=== PATIENT | male | born 1940 | race Caucasian/White ===

== ENCOUNTER 2016-06-06 11:50 | Inpatient (IN) | payer MEDICARE, OTHER ==
[~2016-06-06] VITALS: Ht 175.3 cm; Wt 84.4 kg
[~2016-06-06 11:50] MED LIST: ASPI-807 PO; BIFI4CAP PO; BISA10SU61 RC; CARV3.122 PO; CHOL100040 PO; DILT30TA35 PO; FAMO-130 PO; FLUV20CA PO; INSU100V13 SQ; INSU10VI3 SQ; MAGN400O6 PO; MECL12.582 PO; MIRT15TA3 PO; SITA25TA PO; SPIR25TA PO; TRAM100T PO
[2016-06-06] MEDS ORDERED: IV NS 0.9% 1,000 ML BAG IV ONE (12:00)
[2016-06-06] MEDS ORDERED: MORPHINE SULFATE INJ 10 MG/ML DISP.SYRIN IV ONE (12:00)
[2016-06-06] MEDS ORDERED: CEFEPIME 1 GM in IV D5W 50 ML IV ONE (12:00)
[2016-06-06] MEDS ORDERED: VANCOMYCIN 1 GM in IV D5W 250 ML IV ONE (12:00)
[2016-06-06] MEDS ORDERED: ONDANSETRON HCL/PF 4 MG/2 ML VIAL IV ONE (12:00)
[2016-06-06] MEDS ORDERED: IV NS 0.9% 1,000 ML ONE (12:13)
[2016-06-06] MEDS ORDERED: MORPHINE SULFATE INJ 4 MG/ML DISP.SYRIN ONE (12:13)
[2016-06-06] MEDS ORDERED: IV SET PRIMARY 1 EA INFUS.SET MC ONE (12:13)
[2016-06-06] MEDS ORDERED: ONDANSETRON HCL/PF 4 MG/2 ML VIAL ONE (12:13)
[2016-06-06 12:20] LABS: EOSINOPHILS # (AUTO) 0.4 /CMM (0.0-0.7); LYMPHOCYTES # (AUTO) 1.1 /CMM (0.8-4.8)
[2016-06-06 12:23] LABS: BASOPHILS # (AUTO) 0.1 /CMM (0.0-0.2); BASOPHILS % (AUTO) 1.4 % (0.0-2.0); DIFF TOTAL % 100 %; EOSINOPHILS % (AUTO) 4.2 % (0.0-6.0); HEMATOCRIT 36 % (39-51); HEMOGLOBIN 11.7 g/dL (13.5-17.5); LYMPHOCYTES % (AUTO) 11.9 % (20.0-44.0); MEAN CORPUSCULAR HEMOGLOBIN 30 PG (26.0-33.0); MEAN CORPUSCULAR HGB CONC 33 g/dl (31.0-36.0); MEAN CORPUSCULAR VOLUME 93 fL (80-96); MONOCYTES # (AUTO) 0.5 /CMM (0.1-1.30); MONOCYTES % (AUTO) 5.8 % (2.0-12.0); NEUTROPHILS % (AUTO) 76.7 % (43.0-81.0); PLATELET COUNT (AUTO) 210 /CMM (150-450); RED BLOOD CELL COUNT(AUTO) 3.84 MIL/uL (4.5-6.0); WHITE BLOOD COUNT (AUTO) 9.1 K/uL (4.3-11.0)
[2016-06-06 12:29] LABS: ANION GAP 17 (5-14); CALCIUM, SERUM 8.9 mg/dL (8.5-10.1); CARBON DIOXIDE 25 mmol/L (21-32); CHLORIDE 97 mmol/L (98-107); CREATININE 1.9 mg/dL (0.6-1.3); GLUCOSE 105 mg/dL (74-106); POTASSIUM 4.2 mmol/L (3.5-5.1); SODIUM SERUM 135 mmol/L (136-145); UREA NITROGEN, BLOOD 29 mg/dL (7-18)
[2016-06-06 12:35] LABS: ALANINE AMINOTRANSFERASE 13 U/L (12-78); ALBUMIN 3.4 g/dL (3.4-5.0); ASPARTATE AMINOTRANSFERASE 13 U/L (15-37); BILIRUBIN,DIRECT 0.2 mg/dL (0.0-0.2); BILIRUBIN,TOTAL 0.7 mg/dL (0.2-1.0); INDIRECT BILIRUBIN 0.5 mg/dL (0.0-1.1); TOTAL PROTEIN, SERUM 7.9 g/dL (6.4-8.2)
[2016-06-06 12:37] LABS: TROPONIN I < 0.017 ng/mL (0.00-0.056)
[2016-06-06 12:38] LABS: INR 1.02 (0.87-1.13); PROTHROMBIN TIME 10.7 SECS (9.5-12.7)
[2016-06-06] MEDS ORDERED: FAMO40TA7 PO (12:39)
[2016-06-06] MEDS ORDERED: GABA-532 PO (12:39)
[2016-06-06] MEDS ORDERED: LINA5TAB PO (12:39)
[2016-06-06] MEDS ORDERED: VITA1TAB56 PO (12:39)
[2016-06-06] MEDS ORDERED: NATE60TA4 PO (12:39)
[2016-06-06] MEDS ORDERED: MIDO5TAB PO (12:39)
[2016-06-06] MEDS ORDERED: ATOR10TA PO (12:39)
[2016-06-06] MEDS ORDERED: PIOG30TA2 PO (12:39)
[2016-06-06] MEDS ORDERED: NATE120T6 PO (12:39)
[2016-06-06] MEDS ORDERED: IV SET PRIMARY PUMP SET 1 EA INFUS.SET MC ONE ×2 (12:39→18:36)
[2016-06-06] MEDS ORDERED: CHOL100044 PO (12:39)
[2016-06-06] MEDS ORDERED: LACT10SO7 PO (12:39)
[2016-06-06 14:30] VITALS: BP 121/78
[2016-06-06] MEDS ORDERED: ACETAMINOPHEN 325 MG TABLET PO PRN (15:30)
[2016-06-06] MEDS ORDERED: DEXTROSE 50%-WATER 50 ML DISP.SYRIN IV PRN (15:30)
[2016-06-06] MEDS ORDERED: ONDANSETRON HCL/PF 4 MG/2 ML VIAL IVP PRN (15:30)
[2016-06-06] MEDS ORDERED: HYDROCODONE/APAP 5/325MG 1 EACH TABLET PO PRN (15:30)
[2016-06-06] MEDS ORDERED: Z GUARD REMEDY 2 OZ OINT TP PRN (15:30)
[2016-06-06] MEDS ORDERED: MAGNESIUM HYDROXIDE 30 ML UDC PO PRN (15:30)
[2016-06-06] MEDS ORDERED: MAG HYDROX/AL HYDROX/SIMETH 30 ML UDC PO PRN (15:30)
[2016-06-06] MEDS ORDERED: ZOLPIDEM TARTRATE 5 MG TABLET PO PRN (15:30)
[2016-06-06] MEDS ORDERED: Medication Not On Formulary EA (Famotidine 40 MG) PO SCH (15:30)
[2016-06-06 16:00] VITALS: BP 116/70
[2016-06-06] MEDS ORDERED: LACTULOSE 10 G/15 ML UDC (PYXIS) PO PRN (16:30)
[2016-06-06] MEDS: PIOGLITAZONE HCL 15 MG TABLET PO SCH (16:34)
[2016-06-06] MEDS: CHOLECALCIFEROL 1,000 UNIT TABLET (VIT D3) PO SCH (16:34)
[2016-06-06] MEDS: PANTOPRAZOLE 40 MG TABLET.DR PO SCH (16:34)
[2016-06-06] MEDS: ASPIRIN 81 MG TAB.CHEW PO SCH (16:34)
[2016-06-06] MEDS: GABAPENTIN 100 MG CAPSULE PO SCH (16:34)
[2016-06-06] MEDS: ATORVASTATIN 10 MG TABLET PO SCH (16:34)
[2016-06-06] MEDS ORDERED: FEE PK DOSING 1 MIN EA MC ONE (16:44)
[2016-06-06] MEDS ORDERED: NATEGLINIDE 60 MG TABLET PO SCH ×2 (17:00)
[2016-06-06] MEDS: BLOOD SUGAR DIAGNOSTIC 1 EACH STRIP VI SCH ×2 (17:30→21:44)
[2016-06-06] MEDS: IV NS 0.9% 1,000 ML IV PRN (18:43)
[2016-06-06] MEDS: FAMOTIDINE (20 MG) 20 MG TABLET PO SCH (18:43)
[2016-06-06 21:00] VITALS: BP 126/69
[2016-06-06] MEDS: *INSULIN REGULAR(HUMULIN R)HUM 100 UNIT/ML VIAL SQ PRN (21:46)
[2016-06-06] MEDS: INSULIN DETEMIR 100 UNIT/ML CARTRIDGE SQ SCH (21:47)
[2016-06-07] MEDS: BLOOD SUGAR DIAGNOSTIC 1 EACH STRIP VI SCH ×4 (06:10→22:27)
[2016-06-07] MEDS: INSULIN REGULAR, HUMAN 100 UNIT/ML 3 ML VIAL SQ PRN ×2 (06:15→17:33)
[2016-06-07] MEDS: IV NS 0.9% 1,000 ML IV PRN (06:19)
[2016-06-07 08:20] LABS: BASOPHILS % (AUTO) 0.1 % (0.0-2.0); DIFF TOTAL % 100 %; EOSINOPHILS # (AUTO) 0.5 /CMM (0.0-0.7); EOSINOPHILS % (AUTO) 5.7 % (0.0-6.0); HEMATOCRIT 31 % (39-51); HEMOGLOBIN 10.4 g/dL (13.5-17.5); LYMPHOCYTES # (AUTO) 0.6 /CMM (0.8-4.8); LYMPHOCYTES % (AUTO) 6.1 % (20.0-44.0); MEAN CORPUSCULAR HEMOGLOBIN 31 PG (26.0-33.0); MEAN CORPUSCULAR HGB CONC 34 g/dl (31.0-36.0); MEAN CORPUSCULAR VOLUME 92 fL (80-96); MONOCYTES # (AUTO) 0.8 /CMM (0.1-1.30); MONOCYTES % (AUTO) 8.4 % (2.0-12.0); NEUTROPHILS # (AUTO) 7.5 /CMM (1.8-8.9); NEUTROPHILS % (AUTO) 79.7 % (43.0-81.0); PLATELET COUNT (AUTO) 174 /CMM (150-450); RED BLOOD CELL COUNT(AUTO) 3.37 MIL/uL (4.5-6.0); WHITE BLOOD COUNT (AUTO) 9.4 K/uL (4.3-11.0)
[2016-06-07] MEDS: PIOGLITAZONE HCL 15 MG TABLET PO SCH (08:28)
[2016-06-07] MEDS: ASPIRIN 81 MG TAB.CHEW PO SCH (08:28)
[2016-06-07] MEDS: FAMOTIDINE (20 MG) 20 MG TABLET PO SCH (08:28)
[2016-06-07] MEDS: VITAMIN B COMP W-C 1 TAB TABLET PO SCH (08:28)
[2016-06-07] MEDS: CHOLECALCIFEROL 1,000 UNIT TABLET (VIT D3) PO SCH (08:28)
[2016-06-07] MEDS: PANTOPRAZOLE 40 MG TABLET.DR PO SCH (08:28)
[2016-06-07] MEDS: ATORVASTATIN 10 MG TABLET PO SCH (08:29)
[2016-06-07] MEDS: GABAPENTIN 100 MG CAPSULE PO SCH ×2 (08:29→17:31)
[2016-06-07 08:54] LABS: ALBUMIN 2.6 g/dL (3.4-5.0); BILIRUBIN,TOTAL 0.4 mg/dL (0.2-1.0); CALCIUM, SERUM 7.9 mg/dL (8.5-10.1); CREATININE 1.7 mg/dL (0.6-1.3); PHOSPHORUS 3.1 mg/dL (2.5-4.9); TOTAL PROTEIN, SERUM 6.3 g/dL (6.4-8.2)
[2016-06-07 09:00] VITALS: BP 136/70
[2016-06-07 09:40] LABS: THYROID STIMULATING HORMONE 1.881 uIU/mL (0.358-3.74)
[2016-06-07] MEDS: MIDODRINE HCL (5MG) 5 MG TABLET PO SCH (12:17)
[2016-06-07] MEDS: DILTIAZEM HCL 30 MG TABLET PO SCH (12:17)
[2016-06-07] MEDS ORDERED: SECONDARY IV SET 1 EA INFUS.SET MC ONE ×2 (12:44→13:48)
[2016-06-07] MEDS ORDERED: Magnesium 1GM/D5W 100ML PREMIX 100 ML IV SCH (13:00)
[2016-06-07] MEDS: VANCOMYCIN 1 GM in IV D5W 250 ML IV SCH (14:01)
[2016-06-07 17:46] VITALS: BP 108/68
[2016-06-07 20:00] VITALS: BP 126/69
[2016-06-07] MEDS: *INSULIN REGULAR(HUMULIN R)HUM 100 UNIT/ML VIAL SQ PRN (22:25)
[2016-06-07] MEDS: INSULIN DETEMIR 100 UNIT/ML CARTRIDGE SQ SCH (22:32)
[2016-06-08] MEDS: BLOOD SUGAR DIAGNOSTIC 1 EACH STRIP VI SCH ×4 (07:06→21:26)
[2016-06-08 08:00] VITALS: BP 144/83
[2016-06-08] MEDS: ATORVASTATIN 10 MG TABLET PO SCH (08:44)
[2016-06-08] MEDS: VITAMIN B COMP W-C 1 TAB TABLET PO SCH (08:44)
[2016-06-08] MEDS: GABAPENTIN 100 MG CAPSULE PO SCH ×2 (08:44→17:46)
[2016-06-08] MEDS: CHOLECALCIFEROL 1,000 UNIT TABLET (VIT D3) PO SCH (08:44)
[2016-06-08] MEDS: PANTOPRAZOLE 40 MG TABLET.DR PO SCH (08:44)
[2016-06-08] MEDS: FAMOTIDINE (20 MG) 20 MG TABLET PO SCH (08:44)
[2016-06-08] MEDS: PIOGLITAZONE HCL 15 MG TABLET PO SCH (08:44)
[2016-06-08] MEDS: ASPIRIN 81 MG TAB.CHEW PO SCH (08:44)
[2016-06-08] MEDS: MIDODRINE HCL (5MG) 5 MG TABLET PO SCH (12:25)
[2016-06-08] MEDS: DILTIAZEM HCL 30 MG TABLET PO SCH (12:25)
[2016-06-08] MEDS: INSULIN REGULAR, HUMAN 100 UNIT/ML 3 ML VIAL SQ PRN ×2 (12:28→17:53)
[2016-06-08] MEDS: VANCOMYCIN 1 GM in IV D5W 250 ML IV SCH (13:31)
[2016-06-08] MEDS: IV NS 0.9% 1,000 ML IV PRN (13:37)
[2016-06-08 20:00] VITALS: BP 121/67
[2016-06-08] MEDS: *INSULIN REGULAR(HUMULIN R)HUM 100 UNIT/ML VIAL SQ PRN (21:28)
[2016-06-08] MEDS: INSULIN DETEMIR 100 UNIT/ML CARTRIDGE SQ SCH (21:30)
[2016-06-09] MEDS: BLOOD SUGAR DIAGNOSTIC 1 EACH STRIP VI SCH ×3 (06:19→16:40)
[2016-06-09 08:00] VITALS: BP 150/77
[2016-06-09 08:43] LABS: CALCIUM, SERUM 7.7 mg/dL (8.5-10.1); CREATININE 1.5 mg/dL (0.6-1.3); POTASSIUM 3.9 mmol/L (3.5-5.1)
[2016-06-09] MEDS: ASPIRIN 81 MG TAB.CHEW PO SCH (09:13)
[2016-06-09] MEDS: GABAPENTIN 100 MG CAPSULE PO SCH ×2 (09:13→16:39)
[2016-06-09] MEDS: CHOLECALCIFEROL 1,000 UNIT TABLET (VIT D3) PO SCH (09:13)
[2016-06-09] MEDS: ATORVASTATIN 10 MG TABLET PO SCH (09:13)
[2016-06-09] MEDS: VITAMIN B COMP W-C 1 TAB TABLET PO SCH (09:13)
[2016-06-09] MEDS: PANTOPRAZOLE 40 MG TABLET.DR PO SCH (09:14)
[2016-06-09] MEDS: FAMOTIDINE (20 MG) 20 MG TABLET PO SCH (09:14)
[2016-06-09] MEDS: PIOGLITAZONE HCL 15 MG TABLET PO SCH (09:18)
[2016-06-09] MEDS: DILTIAZEM HCL 30 MG TABLET PO SCH (12:29)
[2016-06-09] MEDS: MIDODRINE HCL (5MG) 5 MG TABLET PO SCH (12:29)
[2016-06-09] MEDS: INSULIN REGULAR, HUMAN 100 UNIT/ML 3 ML VIAL SQ PRN (12:31)
[2016-06-09] MEDS: Magnesium 1GM/D5W 100ML PREMIX 100 ML IV SCH ×2 (14:00→15:00)
[2016-06-09] MEDS: VANCOMYCIN 1 GM in IV D5W 250 ML IV SCH (14:00)
[2016-06-09 16:00] VITALS: BP 152/80
== END 2016-06-09 18:23 | DRG 299 ==
LOC: ER 11:58 → MEDSG1 14:10 → MEDSG2 19:50
PROVIDERS: ADMIT Internal Medicine; ATTEND Internal Medicine
DX: E11.52 Type 2 diabetes mellitus with diabetic peripheral angiopathy with gangrene (principal); N17.0 Acute kidney failure with tubular necrosis; L03.116 Cellulitis of left lower limb; E11.621 Type 2 diabetes mellitus with foot ulcer; Z87.891 Personal history of nicotine dependence; D63.8 Anemia in other chronic diseases classified elsewhere; E11.22 Type 2 diabetes mellitus with diabetic chronic kidney disease; E66.9 Obesity, unspecified; E78.5 Hyperlipidemia, unspecified; L97.529 Non-pressure chronic ulcer of other part of left foot with unspecified severity; E78.00 Pure hypercholesterolemia, unspecified; I12.9 Hypertensive chronic kidney disease with stage 1 through stage 4 chronic kidney disease, or unspecified chronic kidney disease; N18.2 Chronic kidney disease, stage 2 (mild); Z68.27 Body mass index [BMI] 27.0-27.9, adult
CPT/HCPCS: 36415; 71010-TC; 73630-TC; 80048-TC; 80053-TC; 80061-TC; 80076-TC; 80202-TC; 82962-TC; 83605-TC; 83735-TC; 84100-TC; 84443-TC; 84484-TC; 85025-TC; 85652-TC; 85730-TC; 86140-TC; 87040-TC; 87081-TC; 93925-TC; A4606; A6402; J0692; J1815; J2270; J2405; J3370; J3475; J7030; J7060; Z7610